=== PATIENT | male | born 1980 | race African-American/Black ===

== ENCOUNTER 2019-04-19 15:02 | Emergency (ER) | payer MEDICAID ==
[~2019-04-19] VITALS: Ht 180.3 cm; Wt 68.0 kg
[2019-04-19] MEDS ORDERED: ONDANSETRON 4MG ODT PO ONE (16:45)
[2019-04-19] MEDS ORDERED: HYDROCODONE/ACETAMINOPHEN 5/325MG TABLET PO ONE (16:45)
[2019-04-19 19:15] VITALS: BP 162/94
== END 2019-04-19 19:20 | disposition home or self-care (01) ==
LOC: ER 15:02
DX: R60.0 Localized edema (principal); M25.561 Pain in right knee; I10 Essential (primary) hypertension
CPT/HCPCS: 73562; 93970; 99284; L1830; Q0162